=== PATIENT | female | born 1995 | race Caucasian/White ===

== ENCOUNTER 2020-08-07 11:06 | Emergency (ER) | payer SELFPAY ==
[2020-08-07 11:51] LABS: Absolute Lymphocytes (CBC) 0.9 K/uL (0.7-4.9); Basophils % 0.5 % (0-1.3); Hematocrit 39.1 % (36.0-45.0); Lymphocytes % 18.6 % (15.3-44.8); MPV 8.5 fL (7.6-11.3); RBC Red Blood Cell Count 4.14 M/uL (3.86-4.86)
[2020-08-07 13:18] LABS: Urine Blood TRACE (NEG); Urine Glucose NEGATIVE (NEG); Urine Protein NEGATIVE (NEG); Urine pH 6.5 (5.0-7.0)
--- NOTE | 2020-08-07 13:40 | EDPHYS ---
Physician Documentation [facility] Name: Luann Ovalles Age: 24 yrs Sex: Female : 1995 Arrival Date: 08/07/2020 Time: 11:07 Bed 2 Private MD: ED Physician Filemon López HPI: 08/07 14:06 This 24 yrs old Female presents to ER via EMS with complaints of Seizure. jr8 14:06 The patient presents after having a single isolated seizure. Character of seizure(s): jr8 Loss of consciousness: it is not known if the patient experienced loss of consciousness, Motor activity: generalized, Incontinence: none, Apnea: the patient did not experience apnea, Circulation: the patient did not experience evidence of pulse disturbance, Eye movements: are unknown. Seizure onset: just prior to arrival. Context: the seizure(s) was witnessed, by a bystander, occurred at school. Seizure Hx: pseudo seizure history . Associated injury: The patient did not suffer any apparent associated injury. Current symptoms: confusion. The patient has experienced similar episodes in the past, a few times. The patient has not recently seen a physician. 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 Was about to take a test at school today when she had one. No recollection of getting to hospital. Feeling better but still feels confused somewhat . 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 - Social history:: Smoking status: unknown. ROS: 14:06 Eyes: Negative for injury, pain, redness, and discharge, ENT: Negative for injury, jr8 pain, and discharge, Neck: Negative for injury, pain, and swelling, Cardiovascular: Negative for chest pain, palpitations, and edema, Respiratory: Negative for shortness of breath, cough, wheezing, and pleuritic chest pain, Abdomen/GI: Negative for abdominal pain, nausea, vomiting, diarrhea, and constipation, Back: Negative for injury and pain, MS/Extremity: Negative for injury and deformity, Skin: Negative for injury, rash, and discoloration. 14:06 Neuro: Positive for seizure activity. Exam: 14:06 Eyes: Pupils equal round and reactive to light, extra-ocular motions intact. Lids and jr8 lashes normal. Conjunctiva and sclera are non-icteric and not injected. Cornea within normal limits. Periorbital areas with no swelling, redness, or edema. ENT: Nares patent. No nasal discharge, no septal abnormalities noted. Tympanic membranes are normal and external auditory canals are clear. Oropharynx with no redness, swelling, or masses, exudates, or evidence of obstruction, uvula midline. Mucous membranes moist. Neck: Trachea midline, no thyromegaly or masses palpated, and no cervical lymphadenopathy. Supple, full range of motion without nuchal rigidity, or vertebral point tenderness. No Meningismus. Cardiovascular: Regular rate and rhythm with a normal S1 and S2. No gallops, murmurs, or rubs. Normal PMI, no JVD. No pulse deficits. Respiratory: Lungs have equal breath sounds bilaterally, clear to auscultation and percussion. No rales, rhonchi or wheezes noted. No increased work of breathing, no retractions or nasal flaring. Abdomen/GI: Soft, non-tender, with normal bowel sounds. No distension or tympany. No guarding or rebound. No evidence of tenderness throughout. Back: No spinal tenderness. No costovertebral tenderness. Full range of motion. Skin: Warm, dry with normal turgor. Normal color with no rashes, no lesions, and no evidence of cellulitis. MS/ Extremity: Pulses equal, no cyanosis. Neurovascular intact. Full, normal range of motion. Neuro: Awake and alert, GCS 15, oriented to person, place, time, and situation. Cranial nerves II-XII grossly intact. Motor strength 5/5 in all extremities. Sensory grossly intact. Cerebellar exam normal. Normal gait. Vital Signs: 10:59 BP 127 / 82; Pulse 92; Resp 16; Temp 98.6; Pulse Ox 100% ; sv 11:57 BP 114 / 73; Pulse 96; Resp 16; Pulse Ox 100% ; sv 12:45 BP 131 / 80; Pulse 73; Resp 16; Pulse Ox 100% ; sv 13:56 BP 127 / 78; Pulse 76; Resp 18; Temp 98.0; Pulse Ox 99% on R/A; ph [place] Coma Score: 11:00 Eye Response: spontaneous(4). Verbal Response: oriented(5). Motor Response: obeys sv commands(6). Total: 15. MDM: 11:21 Patient medically screened. jr8 13:39 Data reviewed: vital signs, nurses notes, lab test result(s), and as a result, I will jr8 discharge patient. Data interpreted: Pulse oximetry: on room air is 100 %. Interpretation: normal. Counseling: I had a detailed discussion with the patient and/or guardian regarding: the historical points, exam findings, and any diagnostic results supporting the discharge/admit diagnosis, lab results, the need for outpatient follow up, a family practitioner, to return to the emergency department if symptoms worsen or persist or if there are any questions or concerns that arise at home. Response to treatment: the patient's symptoms have resolved after treatment. 08/07 11:40 Order name: CBC with Diff jr8 08/07 11:40 Order name: Basic Metabolic Panel; Complete Time: 12:33 jr8 08/07 11:41 Order name: CBC with Automated Diff; Complete Time: 12:33 EDMS 08/07 12:42 Order name: Urine Dipstick--Ancillary (enter results); Complete Time: 13:30 bd 08/07 12:43 Order name: Urine --Ancillary (enter results); Complete Time: 13:30 bd 08/07 13:26 Order name: Urine Microscopic Only bd 08/07 11:40 Order name: IV; Complete Time: 11:42 jr8 08/07 11:40 Order name: Urine Test (obtain specimen); Complete Time: 13:29 jr8 08/07 11:40 Order name: Urine Dipstick-Ancillary (obtain specimen); Complete Time: 13:29 jr8 Administered Medications: No medications were administered Disposition: 14:48 Co-signature as Attending Physician, Filemon López MD I agree with the assessment and kdr plan of care. Disposition: 08/07/20 13:40 Discharged to Home. Impression: Seizures. - Condition is Stable. - Discharge Instructions: Nonepileptic Seizures. - Medication Reconciliation Form, Thank You Letter, Antibiotic Education, Prescription Opioid Use form. - Follow up: Private Physician; When: 2 - 3 days; Reason: Recheck today's complaints, Continuance of care, Re-evaluation by your physician. - Problem is new. - Symptoms have improved. Signatures: Dispatcher MedHoNew [facility] Rehabilitation CenterPetrona Luu RN RN sv Rittger, Kevin, MD MD kdr Roszak, Josh, PA PA jr8 Mary Lou Feliciano RN RN ph Corrections: (The following items were deleted from the chart) 14:01 13:40 08/07/2020 13:40 Discharged to Home. Impression: Seizures. Condition is Stable. ph Forms are Medication Reconciliation Form, Thank You Letter, Antibiotic Education, Prescription Opioid Use. Follow up: Private Physician; When: 2 - 3 days; Reason: Recheck today's complaints, Continuance of care, Re-evaluation by your physician. Problem is new. Symptoms have improved. jr8
--- NOTE | 2020-08-07 13:40 | ER ---
Nurse's Notes [facility] Name: Luann Ovalles Age: 24 yrs Sex: Female : 1995 Arrival Date: 08/07/2020 Time: 11:07 Bed 2 Private MD: Diagnosis: Seizures Presentation: 08/07 10:59 Chief complaint: EMS states: called out for possible seizure, hx pseudo seizures. Pt sv had 2 en route but was able to be woken up by sternal rub. Pt did not go into a post ictal state. SL 18g R AC, Versed 5 mg IVP, Zofran 4mg IVP given. Coronavirus screen: Client denies travel out of the [place] in the last 14 days. At this time, the client does not indicate any symptoms associated with coronavirus-19. Ebola Screen: No symptoms or risks identified at this time. Initial Sepsis Screen: Does the patient meet any 2 criteria? No. Patient's initial sepsis screen is negative. Does the patient have a suspected source of infection? No. Patient's initial sepsis screen is negative. Risk Assessment: Do you want to hurt yourself or someone else? Patient reports no desire to harm self or others. Onset of symptoms was August 07, 2020. 10:59 Method Of Arrival: EMS: [facility] sv 10:59 Acuity: PAO 3 sv Triage Assessment: 11:00 General: Appears in no apparent distress. comfortable, well developed, Behavior is sv calm, cooperative, appropriate for age. Pain: Denies pain. Neuro: Level of Consciousness is awake, alert, obeys commands, Oriented to person, place, time, situation, Moves all extremities. Full function. Respiratory: Airway is patent Respiratory effort is even, unlabored, Respiratory pattern is regular, symmetrical. Derm: Skin is intact, Skin is pink, warm \T\ dry. Musculoskeletal: Range of motion: intact in all extremities. 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 - Social history:: Smoking status: unknown. Screenin:10 Abuse screen: Denies threats or abuse. Denies injuries from another. Nutritional sv screening: No deficits noted. Tuberculosis screening: No symptoms or risk factors identified. Fall Risk None identified. Assessment: 11:50 Reassessment: Patient appears in no apparent distress at this time. No changes from sv previously documented assessment. Patient and/or family updated on plan of care and expected duration. Pain level reassessed. Patient is alert, oriented x 3, equal unlabored respirations, skin warm/dry/pink. 12:50 Reassessment: Patient appears in no apparent distress at this time. No changes from sv previously documented assessment. Patient and/or family updated on plan of care and expected duration. Pain level reassessed. Patient is alert, oriented x 3, equal unlabored respirations, skin warm/dry/pink. 13:20 Reassessment: Patient appears in no apparent distress at this time. No changes from sv previously documented assessment. Patient and/or family updated on plan of care and expected duration. Pain level reassessed. Patient is alert, oriented x 3, equal unlabored respirations, skin warm/dry/pink. 13:31 Reassessment: Olivier DELACRUZ at bedside discussing results. sv Vital Signs: 10:59 BP 127 / 82; Pulse 92; Resp 16; Temp 98.6; Pulse Ox 100% ; sv 11:57 BP 114 / 73; Pulse 96; Resp 16; Pulse Ox 100% ; sv 12:45 BP 131 / 80; Pulse 73; Resp 16; Pulse Ox 100% ; sv 13:56 BP 127 / 78; Pulse 76; Resp 18; Temp 98.0; Pulse Ox 99% on R/A; ph [place] Coma Score: 11:00 Eye Response: spontaneous(4). Verbal Response: oriented(5). Motor Response: obeys sv commands(6). Total: 15. ED Course: 11:00 Patient has correct armband on for positive identification. Bed in low position. Call sv light in reach. Side rails up X2. Seizure precautions initiated. Pulse ox on. NIBP on. 11:00 Maintain EMS IV. Dressing intact. Good blood return noted. Site clean \T\ dry. Gauge \T\ sv site: 18G R AC. 11:07 Patient arrived in ED. sv 11:07 Petrona Hendrickson, TAWANDA is Primary Nurse. sv 11:09 Triage completed. sv 11:09 Arm band placed on. sv 11:21 Olivier Santoyo PA is PHCP. jr8 11:21 Filemon López MD is Attending Physician. jr8 11:50 Initial lab(s) drawn, by me, sent to lab. sv 11:57 CBC with Diff Sent. sv 13:59 No provider procedures requiring assistance completed. IV discontinued, intact, ph bleeding controlled, No redness/swelling at site. Pressure dressing applied. Administered Medications: No medications were administered Outcome: 13:40 Discharge ordered by . jr8 14:00 Discharged to home ambulatory, with significant other. ph 14:00 Condition: good 14:00 Discharge instructions given to patient, Instructed on discharge instructions, follow up and referral plans. Demonstrated understanding of instructions, follow-up care. 14:01 Patient left the ED. ph Signatures: Petrona Hendrickson, RN RN Olivier Santoyo PA PA jr Mary Lou Feliciano RN RN
[2020-08-07 14:50] VITALS: BP 127/78; TEMP 98; O2SAT 99
[2020-08-07 15:30] LABS: Urine Bacteria 20-50 /HPF (<20); Urine Culture Reflex Order REFLEXED; Urine RBC <5 /HPF (NONE SEEN)
== END 2020-08-07 14:01 | disposition home or self-care (01) ==
LOC: ER 11:06
DX: R56.9 Unspecified convulsions (principal); Z88.1 Allergy status to other antibiotic agents
CPT/HCPCS: 36415; 80048; 81003; 81015; 81025; 85025; 87086; 87088; 99284